=== PATIENT | female | born 1960 | race African-American/Black ===

== ENCOUNTER 2017-01-07 12:40 | Emergency (ER) | payer OTHER ==
[~2017-01-07] VITALS: Ht 165.1 cm; Wt 98.0 kg
[~2017-01-07 12:40] MED LIST: COMB0.2S EACH EYE; HYDR-3129 PO; LATA0.00 OP; MOBI7.5T PO; TIZA4 PO
[2017-01-07 12:42] VITALS: BP 163/100; PULSE 95; RESP 20; TEMP 98.5; O2SAT 99
[2017-01-07] MEDS ORDERED: ORPHENADRINE INJ 60 MG/2 ML AMP IM ONE (13:30)
[2017-01-07] MEDS ORDERED: BACL10TA PO (13:30)
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
[2017-01-07] MEDS ORDERED: TIZA4TAB PO (14:34)
[2017-01-07] MEDS ORDERED: MOBI7.5T PO (14:34)
[2017-01-07] MEDS ORDERED: COMB0.2S EACH EYE (14:34)
[2017-01-07] MEDS ORDERED: LATA0.002 EACH EYE (14:34)
[2017-01-07 14:35] VITALS: BP 160/101
== END 2017-01-07 15:12 | disposition home or self-care (01) ==
LOC: NEPC 12:40
DX: S39.012A Strain of muscle, fascia and tendon of lower back, initial encounter (principal); X50.1XXA Overexertion from prolonged static or awkward postures, initial encounter; Y92.811 Bus as the place of occurrence of the external cause
CPT/HCPCS: 96372; 99283; J2360